=== PATIENT | male | born 1990 | race Caucasian/White ===

== ENCOUNTER 2023-11-28 17:27 | Emergency (ER) | payer OTHER, SELFPAY ==
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
[2023-11-28 17:52] VITALS: BP 123/75; PULSE 76; RESP 16; TEMP 36.4; O2SAT 98; BMI 19.2
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
[2023-11-28] MEDS: Ibuprofen 400 MG TABLET PO (19:05)
[2023-11-28 19:56] VITALS: BP 118/76; PULSE 74; RESP 18; TEMP 36.6; O2SAT 98
[2023-11-28 20:06] VITALS: BP 118/76; PULSE 74; RESP 18; TEMP 36.6; O2SAT 98
== END 2023-11-28 20:07 | disposition home or self-care (01) ==
PROVIDERS: Emergency Provider Emergency Medicine
DX: S93.401A Sprain of unspecified ligament of right ankle, initial encounter (principal); S90.31XA Contusion of right foot, initial encounter; W20.8XXA Other cause of strike by thrown, projected or falling object, initial encounter; Y93.89 Activity, other specified; Y92.9 Unspecified place or not applicable; Y99.9 Unspecified external cause status
CPT/HCPCS: 73610; 73620; 99283; 99284

== ENCOUNTER 2025-03-04 11:25 | Emergency (ER) | payer OTHER, SELFPAY ==
--- NOTE | 2025-03-04 11:30 | ED_ITS ---
HPI - General Adult General Chief complaint: Nausea/Vomiting/Diarrhea Stated complaint: alcohol poisoning Time Seen by Provider: 03/04/25 11:43 Source: patient, RN notes reviewed and old records reviewed Mode of arrival: ambulatory Limitations: no limitations History of Present Illness ED Provider: Dottie LEDESMA narrative: 34-year-old male presents for evaluation of upper abdominal pain, vomiting. He reports that he drank too much alcohol last night. He states that he has been vomiting all morning with burning upper abdominal and chest pain. He also reports being very sweaty and feeling weak. He denies any previous medical problems or abdominal surgeries denies any fevers or chills. No other complaints or concerns at this time Related Data Previous Rx's ?Medication ?Instructions ?Recorded naproxen 500 mg tablet 500 mg PO BID PRN pain 7 day s #14 11/28/23 tabs ondansetron 4 mg disintegrating 4 mg PO Q8H PRN nausea and 03/04/25 tablet vomiting #20 tabs Allergies Allergy/AdvReac Type Severity Reaction Status Date / Time seafood Allergy Unknown Anaphylaxis Verified 03/04/25 12:10 prochlorperazine (From AdvReac Hallucinati Verified 03/04/25 12:10 Compazine) ons Review of Systems 2 Constitutional: Constitutional: Denies body ache(s), Reports chills, Denies fever(s) and Denies headache(s) Eyes: Eyes: Denies blurry vision ENT: Denies vertigo, Denies dizziness and Denies headache(s) Cardiovascular: Cardiovascular: Reports chest pain, Reports Epigastric Pain, Reports epigastric discomfort, Denies dyspnea and Denies dyspnea on exertion Respiratory: Respiratory: Denies cough, Denies dyspnea and Denies dyspnea on exertion Gastrointestinal: Gastrointestinal: Reports abdominal pain, Denies nausea and Denies vomiting Musculoskeletal: Musculoskeletal: Denies back pain Integumentary/Breasts: Skin/Breast: Denies rash Neurologic: Denies vertigo, Denies dizziness and Denies headache(s) Psychiatric: Psychiatric: Denies anxiety PMFSH Social History Social History Smoked in Last 30 Days: Yes Use of substances other than those prescribed or required for medical reasons: Yes Substance Use Type: Marijuana Advance Directives: No Advance Directives Information Provided: No Physical Exam ED Vital Signs: Vital Signs - 24 hr 03/04/25 11:32 03/04/25 12:16 Temperature 97.1 F Pulse Rate 74 68 Respiratory Rate 20 16 Blood Pressure 113/78 113/71 Pulse Oximetry 99 98 Oxygen Delivery Method Room Air Room Air BMI result Body Mass Index 18.5 Const General: healthy appearing, comfortable, no acute distress, alert and awake Nutritional Appearance: well nourished Orientation/consciousness: patient oriented x3 HENMT Head: Yes normocephalic and Yes atraumatic Eyes Eyelids: Yes eyelids normal Conjunctivae: conjunctivae normal Sclerae: sclerae normal Corneas: corneas normal Pupils: Equal, round and reactive pupils present EOM: EOMs intact bilaterally Neck Neck: Yes full ROM Resp Effort & Inspection: normal respiratory effort, able to speak in complete sentences and not labored GI Inspection: No distended Palpation (GI): Soft to palpation, not firm, nontender, no guarding and not rigid Auscultation: normoactive bowel sounds Skin General skin exam: elasticity normal Neuro General: patient oriented x3 Cranial nerves: Yes Equal, round and reactive pupils present and Yes Bilaterally intact EOM present Cognition (Neuro): normal cognition Extrem Other: Moving all extremities well without any obvious deformities Course Course Course Narrative: RME, this is a rapid medical exam performed by Cortes Sinclair please refer to primary provider for complete H&P- 34year old male presents for evaluation of abdominal pain and vomiting. He reports drinking alcohol in excess last night. Plan for labs, tox screen. He is well appearing in triage Reevaluation(s) Reevaluation #1: patient reports feeling much better, he has not had any further vomiting. His remained stable, I discussed his labs with him including his slightly elevated sodium. He will be discharged with symptomatic treatment Time: 12:56 Medications Administered Generic Name Dose Route Start Last Admin Trade Name Freq PRN Reason Stop Dose Admin Lactated Ringer's 1,000 mls @ 999 mls/hr 03/04/25 12:00 03/04/25 12:14 Lr IV 03/04/25 13:00 999 mls/hr .Q1H1M HILDA Administration Discontinued Medications Generic Name Dose Route Start Last Admin Trade Name Freq PRN Reason Stop Dose Admin Ondansetron HCl 4 mg 03/04/25 11:46 03/04/25 12:08 Ondansetron Hcl 4 Mg/2 Ml Vial IVPUSH 03/04/25 11:47 4 mg ONCE ONE Administration Pantoprazole Sodium 40 mg 03/04/25 11:46 03/04/25 12:11 Pantoprazole Sodium 40 Mg/10 Ml Vial IVPUSH 03/04/25 11:47 40 mg ONCE ONE Administration Medical Decision Making Medical Decision Making [facility] Narrative: 34-year-old male with no significant past medical history presents for evaluation abdominal pain and vomiting after drinking to excess last night. Denies any other substance abuse. His vital signs are stable. Plan for basic labs including lipase, EKG. We will treat with IV fluids, Zofran and Protonix. I suspect alcoholic gastritis. Less likely pancreatitis, alcohol withdrawal, biliary disease, dehydration Differential Diagnosis Differential Diagnoses: The differential diagnosis associated with the presentation includes As above Lab Data [facility] Lab Attestation statement: I reviewed the patient's lab results. mild leukocytosis to 14.2. No anemia. Normal platelet count. The patient's sodium is slightly elevated to 147 likely due to dehydration and vomiting. Potassium is within normal limits. Chloride is also slightly elevated likely due to dehydration. Renal function is within normal limits. LFTs with a normal limits. No evidence to suggest pancreatitis 03/04/25 11:47 03/04/25 11:47 Labs: Lab Results 03/04/25 Range/Units 11:47 WBC 14.2 H (4.8-10.8) X10*3/uL RBC 5.08 (4.60-5.80) X10*6/uL Hgb 16.9 (14.0-18.0) g/dl Hct 47.8 (42.0-52.0) % MCV 94.1 (80.0-98.0) fL MCH 33.3 H (27.0-33.0) pg MCHC 35.4 (31.0-36.0) g/dl RDW 13.0 (11.0-16.0) % Plt Count 184 (160-400) X10*3/uL MPV 12.0 (9.4-12.4) fL Immature Gran % (Auto) 0.3 (0.0-0.4) % Neut % (Auto) 78.4 H (45-73) % Lymph % (Auto) 13.6 L (20-40) % [place] % (Auto) 7.3 (2-11) % Eos % (Auto) 0.1 (0-4) % Baso % (Auto) 0.3 (0-2) % Lymph # (Auto) 1.9 (1.2-4.9) X10*3/uL [place] # (Auto) 1.0 (0.1-1.2) X10*3/uL Eos # (Auto) 0.0 (0.0-0.4) X10*3/uL Baso # (Auto) 0.0 (0.0-0.2) X10*3/uL Abs Immat Gran (auto) 0.04 H (0.00-0.03) X10*3/uL Absolute Neuts (auto) 11.1 H (2.0-8.3) x10*3/uL Absolute Nucleated RBC 0.000 (0.0-0.012) X10*3/uL Nucleated RBC % (auto) 0.0 (0.0-0.2) /100WBC Sodium 147 H (135-145) mmol/L Potassium 4.2 (3.3-5.1) mmol/L Chloride 109 H (96-108) mmol/L Carbon Dioxide 24 (22-29) mmol/L Anion Gap 18 (12-20) BUN 8 L (9-16) mg/dL Creatinine 0.74 (0.5-1.4) mg/dL Estim Creat Clear Calc 113.8 Estimated GFR > 60 Random Glucose 107 (60-115) mg/dL Calcium 9.5 (8.4-10.2) mg/dL Magnesium 1.8 (1.6-2.6) mg/dL Total Bilirubin 0.8 (0.0-1.0) mg/dL AST 25 (5-37) U/L ALT 14 (0-40) U/L Alkaline Phosphatase 66 (39-117) U/L Total Protein 7.9 (6.5-8.0) g/dL Albumin 5.3 H (3.5-5.0) g/dL Lipase 7 L (8-78) U/L Ethyl Alcohol < 10 mg/dL Tests considered The following testing was considered but not selected: consider CT scan of the abdomen pelvis Discharge Plan Discharge Clinical Impression: Acute nausea with nonbilious vomiting Patient Disposition: Home, Self-Care Instructions: Acute Nausea and Vomiting (ED) Additional Instructions: your workup in the ER today was reassuring. You were mildly dehydrated in you were given IV fluids, nausea medicine. Drink lots of fluids, small sips at a time. Follow up with your primary doctor, return for new or worsening symptoms. Avoid excessive consumption of alcohol Prescriptions: New ondansetron 4 mg tablet,disintegrating 4 mg PO Q8H PRN (Reason: nausea and vomiting) Qty: 20 0RF No Action naproxen 500 mg tablet 500 mg PO BID PRN (Reason: pain) 7 Days Qty: 14 0RF Rx Instructions: Take with food. Print Language: Turkish
--- NOTE | 2025-03-04 11:31 | ECG_ITS ---
Test Reason : NAUSEA/VOMIT Blood Pressure : */* mmHG Vent. Rate : 62 BPM Atrial Rate : 62 BPM P-R Int : 146 ms QRS Dur : 92 ms QT Int : 398 ms P-R-T Axes : 78 -57 64 degrees QTcB Int : 403 ms Normal sinus rhythm Left axis deviation Incomplete right bundle branch block Abnormal ECG No previous ECGs available Referred By: Stanton Sinclair Electronically Signed By: TERESA HERNANDEZ
[2025-03-04 11:32] VITALS: BP 113/78; PULSE 74; RESP 20; O2SAT 99; BMI 18.5
[2025-03-04 12:01] LABS: MANUAL DIFF FLAG NO
[2025-03-04 12:02] LABS: Hematocrit 47.8 % (42.0-52.0); Hemoglobin 16.9 g/dl (14.0-18.0); Imm Gran Abs Auto 0.04 X10*3/uL (0.00-0.03); Imm Gran Pct Auto 0.3 % (0.0-0.4); Lymphocytes Absolute Auto 1.9 X10*3/uL (1.2-4.9); Mean Corpuscular HGB Conc 35.4 g/dl (31.0-36.0); Mean Corpuscular Hemoglobin 33.3 pg (27.0-33.0); Mean Corpuscular Volume 94.1 fL (80.0-98.0); NRBC Abs Auto 0.000 X10*3/uL (0.0-0.012); NRBC Pct Auto 0.0 /100WBC (0.0-0.2); Platelet Count 184 X10*3/uL (160-400); Red Blood Count 5.08 X10*6/uL (4.60-5.80); White Blood Count 14.2 X10*3/uL (4.8-10.8)
[2025-03-04] MEDS: Lactated Ringers 1,000 ML 999 ML IV (12:14)
[2025-03-04 12:16] VITALS: BP 113/71; PULSE 68; RESP 16; TEMP 36.2; O2SAT 98
[2025-03-04 12:18] LABS: Alanine Aminotransferase 14 U/L (0-40); Albumin Level 5.3 g/dL (3.5-5.0); Alkaline Phosphatase 66 U/L (39-117); Anion Gap 18 (12-20); Aspartate Amino Transferase 25 U/L (5-37); Blood Urea Nitrogen 8 mg/dL (9-16); Calcium 9.5 mg/dL (8.4-10.2); Carbon Dioxide 24 mmol/L (22-29); Chloride 109 mmol/L (96-108); Creatinine Clr Calc Pharmacy 113.8; Estimated Glomerular Filt Rate > 60; Lipase 7 U/L (8-78); Magnesium 1.8 mg/dL (1.6-2.6); Potassium 4.2 mmol/L (3.3-5.1); Sodium 147 mmol/L (135-145); Total Protein 7.9 g/dL (6.5-8.0)
[2025-03-04 13:03] VITALS: BP 113/71; PULSE 68; RESP 16; TEMP 36.2; O2SAT 98
== END 2025-03-04 13:13 | disposition home or self-care (01) ==
PROVIDERS: Physician Assistant; Emergency Provider Emergency Medicine Emergency Medical Services
DX: R11.2 Nausea with vomiting, unspecified (principal); R19.7 Diarrhea, unspecified; I45.10 Unspecified right bundle-branch block; R94.31 Abnormal electrocardiogram [ECG] [EKG]; Z51.81 Encounter for therapeutic drug level monitoring; Z79.899 Other long term (current) drug therapy
CPT/HCPCS: 36415; 80053; 80307; 83690; 83735; 85025; 93005; 96361; 96374; 96375; 99284; 99285; J2405; J2470; J7120

== ENCOUNTER → 2025-03-04 11:31 | Outpatient (BNV) | payer OTHER, SELFPAY | PROVIDERS: Emergency Provider Emergency Medicine Emergency Medical Services; Visit Provider Internal Medicine | DX: I45.10 Unspecified right bundle-branch block (principal) | CPT/HCPCS: 93010 ==